=== PATIENT | male | born 1965 | race Two or more races ===

== ENCOUNTER 2023-03-13 12:06 | Emergency (ER) | payer OTHER ==
[~2023-03-13] VITALS: Ht 172.7 cm; Wt 84.8 kg
[2023-03-13] MEDS ORDERED: NORVASC10 MG PO (12:41)
[2023-03-13] MEDS ORDERED: COZAAR100 MG PO (12:42)
[2023-03-13] MEDS ORDERED: KETOROLAC TROMETHAMINE 60 MG VIAL IM ONE (16:15)
== END 2023-03-13 19:11 | disposition home or self-care (01) ==
LOC: ER 12:07
DX: S89.81XA Other specified injuries of right lower leg, initial encounter (principal); X58.XXXA Exposure to other specified factors, initial encounter; Y93.89 Activity, other specified; Y92.89 Other specified places as the place of occurrence of the external cause; R60.0 Localized edema; I10 Essential (primary) hypertension

== ENCOUNTER → 2023-03-18 | Emergency (ER) | payer OTHER ==
[~2023-03-18] MED LIST: COZAAR100 MG PO; NORVASC10 MG PO
== END | disposition home or self-care (01) ==
LOC: ER 10:50
DX: Z53.21 Procedure and treatment not carried out due to patient leaving prior to being seen by health care provider (principal)